=== PATIENT | male | born 1970 | race Caucasian/White ===

== ENCOUNTER 2021-09-24 16:05 | Inpatient (IN) | payer BC ==
[~2021-09-24] VITALS: Ht 190.5 cm; Wt 118.8 kg
--- NOTE | 2021-09-24 16:05 | NUR ---
SUZI 80 FROM URGENT CARE C/O NEAR SYNCOPAL EPISODE, DIAPHORETIC AND BILATERAL HAND NUMBNESS STARTED 1 HOUR AGO. PT ATTCHED TO MONITOR, BLOOD PRESSURE IS ELVATED, MD IS AWARE.
--- NOTE | 2021-09-24 16:18 | NUR ---
IV ESTABLISHED R AC 18G. LABS DRAWN AND COLLECTED AT BEDSIDE.
[2021-09-24] MEDS ORDERED: ONDANSETRON HCL/PF 4 MG/2 ML VIAL ONE (16:31)
[2021-09-24] MEDS ORDERED: LORAZEPAM 0.5 MG TABLET ONE (16:45)
[2021-09-24] MEDS ORDERED: LORAZEPAM 1 MG TABLET PO ONE (17:00)
[2021-09-24] MEDS ORDERED: ONDANSETRON HCL/PF - ER 4 MG/2 ML VIAL IV ONE (17:00)
[2021-09-24] MEDS ORDERED: IV NS 0.9% 250 ML BAG IV ONE ×2 (17:00→19:30)
[2021-09-24 17:33] LABS: BASOPHILS % (AUTO) 0.5 % (0.0-2.0); EOSINOPHILS % (AUTO) 0.5 % (0.0-6.0); HEMATOCRIT 41 % (39-51); HEMOGLOBIN 13.2 g/dL (13.5-17.5); LYMPHOCYTES # (AUTO) 1.3 K/uL (0.8-4.8); LYMPHOCYTES % (AUTO) 13.6 % (20.0-44.0); MEAN CORPUSCULAR HGB CONC 32 g/dl (31.0-36.0); MEAN CORPUSCULAR VOLUME 70 fL (80-96); MONOCYTES % (AUTO) 10.4 % (2.0-12.0); NEUTROPHILS # (AUTO) 6.9 K/uL (1.8-8.9); PLATELET COUNT (AUTO) 254 K/uL (150-450); RED BLOOD CELL COUNT(AUTO) 5.88 MIL/uL (4.5-6.0); WHITE BLOOD COUNT (AUTO) 9.2 K/uL (4.3-11.0)
[2021-09-24 18:15] LABS: ALANINE AMINOTRANSFERASE 182 U/L (12-78); ALBUMIN 3.9 g/dL (3.4-5.0); ALKALINE PHOSPHATASE 62 U/L (46-116); ASPARTATE AMINOTRANSFERASE 104 U/L (15-37); BILIRUBIN,DIRECT 0.2 mg/dL (0.0-0.2); CALCIUM, SERUM 9.5 mg/dL (8.5-10.1); CARBON DIOXIDE 22 mmol/L (21-32); CHLORIDE 99 mmol/L (98-107); CREATININE 1.1 mg/dL (0.6-1.3); GLUCOSE 88 mg/dL (74-106); POTASSIUM 3.6 mmol/L (3.5-5.1); SODIUM SERUM 133 mmol/L (136-145); UREA NITROGEN, BLOOD 11 mg/dL (7-18)
--- NOTE | 2021-09-24 18:48 | NUR ---
COVID TEST COLLECTED AND SENT
--- NOTE | 2021-09-24 19:35 | NUR ---
RECEIVED REPORT FROM DAVID GILLIAM FOR SERG[facility]
--- NOTE | 2021-09-24 19:38 | NUR ---
PT RESTING COMFORTABLY IN BED, DENIES ANY PAIN AT THIS TIME. FAMILY AT BEDSIDE. WILL CONTINUE TO MONITOR.
--- NOTE | 2021-09-24 20:05 | NUR ---
PT STATES HAVING HEARTBURN, WOULD LIKE MEDICATION. MADE AWARE
--- NOTE | 2021-09-24 20:08 | NUR ---
RECEIVED VERBAL ORDER FROM DR IRWIN FOR [facility].
[2021-09-24] MEDS ORDERED: MAG HYDROX/AL HYDROX/SIMETH 30 ML UDC ONE (20:11)
[2021-09-24 20:29] LABS: BILIRUBIN,TOTAL 1.3 mg/dL (0.2-1.0)
[2021-09-24] MEDS ORDERED: IPRATROPIUM NEB FS 0.5 MG/2.5 ML AMPUL.NEB NEB ONE (20:30)
[2021-09-24] MEDS ORDERED: methylPREDNISolone SOD SUCC 125 MG/2ML VIAL IV ONE (20:30)
[2021-09-24] MEDS ORDERED: ALBUTEROL FS 2.5 MG/3 ML VIAL.NEB CONTNEB ONE (20:30)
[2021-09-24] MEDS ORDERED: MAG HYDROX/AL HYDROX/SIMETH 30 ML UDC PO ONE (20:30)
[2021-09-24] MEDS ORDERED: methylPREDNISolone SOD SUCC 125 MG/2ML VIAL ONE (20:47)
[2021-09-24] MEDS ORDERED: ASPIRIN 325 MG TABLET ONE (20:52)
[2021-09-24] MEDS ORDERED: NITROGLYCERIN PACKET 1 GM PACKET ONE (20:52)
[2021-09-24] MEDS ORDERED: IPRATROPIUM NEB FS 0.5 MG/2.5 ML AMPUL.NEB ONE (20:53)
[2021-09-24] MEDS ORDERED: ALBUTEROL FS 2.5 MG/3 ML VIAL.NEB ONE (20:53)
--- NOTE | 2021-09-24 20:57 | NUR ---
RT AT BEDSIDE FOR BREATHING TREATMENT
[2021-09-24] MEDS ORDERED: ASPIRIN 325 MG TABLET PO ONE (21:00)
[2021-09-24] MEDS ORDERED: NITROGLYCERIN PACKET 1 GM PACKET TD ONE (21:00)
--- NOTE | 2021-09-24 21:15 | NUR ---
REPORT GIVEN TO KIKI GILLIAM FOR SERGIO
[2021-09-24 21:30] VITALS: BP 143/94
[2021-09-24] MEDS ORDERED: ENOXAPARIN SODIUM 40 MG/0.4 ML DISP.SYRIN SQ SCH (21:30)
[2021-09-24] MEDS ORDERED: ONDANSETRON HCL/PF 4 MG/2 ML VIAL IVP PRN (21:30)
[2021-09-24] MEDS ORDERED: ACETAMINOPHEN 325 MG TABLET PO PRN (21:30)
[2021-09-24] MEDS ORDERED: MORPHINE SULFATE INJ 2 MG/ML DISP.SYRIN IV PRN (21:30)
--- NOTE | 2021-09-24 21:30 | NUR ---
RN RECEIVING TRANSFER NOTE PATIENT ARRIVED TO 3 VIA GURNEY. PATIENT WAS ABLE TO AMBULATE TO HIS BED W/ STEADY GAIT. PATIENT STABLE. A/OX4. NO S/S OF DISTRESS, BREATHING W/O DIFFICULTY ON ROOM AIR. TELE MONITOR APPLIED AND REVEALED SR 85. RAC #18 INTACT AND PATENT. VS WNL. PATIENT ORIENTED TO THE UNIT, GIVEN CALL CLEANING AND INSTRUCTED ON ITS USE. PATIENT BELONGINGS ACCOUNTED FOR, LOGGED INTO SHEET, AND PLACED IN CHART. SAFETY MEASURES IN PLACE: BED AT LOWEST POSITION, LOCKED, RAILS UP X2, CALL CLEANING WITHIN REACH. WILL CONTINUE TO MONITOR PATIENT.
[2021-09-24] MEDS ORDERED: ATORVASTATIN 10 MG TABLET PO SCH (22:00)
[2021-09-24] MEDS ORDERED: ZOLPIDEM TARTRATE 5 MG TABLET PO PRN (23:00)
[2021-09-25] VITALS: BP 126/58
[2021-09-25 04:00] VITALS: BP 136/75
[2021-09-25 06:17] LABS: BASOPHILS % (AUTO) 0.1 % (0.0-2.0); HEMATOCRIT 40 % (39-51); HEMOGLOBIN 12.9 g/dL (13.5-17.5); LYMPHOCYTES # (AUTO) 0.8 K/uL (0.8-4.8); LYMPHOCYTES % (AUTO) 10.9 % (20.0-44.0); MEAN CORPUSCULAR HGB CONC 33 g/dl (31.0-36.0); MEAN CORPUSCULAR VOLUME 71 fL (80-96); MONOCYTES # (AUTO) 0.1 K/uL (0.1-1.30); NEUTROPHILS # (AUTO) 6.8 K/uL (1.8-8.9); PLATELET COUNT (AUTO) 250 K/uL (150-450); RED BLOOD CELL COUNT(AUTO) 5.61 MIL/uL (4.5-6.0); WHITE BLOOD COUNT (AUTO) 7.7 K/uL (4.3-11.0)
[2021-09-25 07:06] LABS: CALCIUM, SERUM 8.9 mg/dL (8.5-10.1); CREATININE 0.9 mg/dL (0.6-1.3); MAGNESIUM 2.4 mg/dL (1.8-2.4); POTASSIUM 4.4 mmol/L (3.5-5.1)
[2021-09-25] MEDS ORDERED: PANTOPRAZOLE 40 MG TABLET.DR PO SCH (07:30)
--- NOTE | 2021-09-25 07:32 | NUR ---
RN CLOSING NOTE PATIENT ASLEEP IN BED. A/OX4. NO S/S OF DISTRESS, BREATHING W/O DIFFICULTY ON ROOM AIR. TELE MONITOR REVEALS SR 70. RAC#18 SL INTACT AND PATENT. SAFETY MEASURES IN PLACE: BED AT LOWEST POSITION, LOCKED, RAILS UP X2, CALL CLEANING WITHIN REACH. PATIENT IS DUE FOR A CT ANGIO 3D SOMETIME LATER ON TODAY. CONSENTS SIGNED AND IN CHART. REPORT ENDORSED TO AND ACKNOWLEDGED BY DAY SHIFT RNKEITH, FOR SERGIO.
--- NOTE | 2021-09-25 07:33 | NUR ---
ms rn received on bed, awake,alert,oriented x4,not in any form of distress, respirations even and unlabored,no sob noted, came in w/ chest pain, denies at this time,sinus rhythm on monitor, will monitor patient.
[2021-09-25 08:00] VITALS: BP 130/88
[2021-09-25] MEDS ORDERED: METF-441 PO (08:11)
[2021-09-25] MEDS ORDERED: BUDE10.26 INH (08:11)
[2021-09-25] MEDS ORDERED: TELM40TA8 PO (08:11)
[2021-09-25] MEDS ORDERED: PRAV40TA3 PO (08:11)
[2021-09-25] MEDS ORDERED: ALBU18HF2 IH (08:11)
--- NOTE | 2021-09-25 08:30 | NUR ---
ms rn due meds given, patient on npo for ct angio today.
[2021-09-25] MEDS ORDERED: FORMOTEROL FUMARATE INH SCH (09:00)
[2021-09-25] MEDS ORDERED: [UNRECOGNIZED DRUG - OTHER] INH SCH (09:00)
[2021-09-25] MEDS ORDERED: BUDESONIDE INH SCH (09:00)
[2021-09-25] MEDS ORDERED: LOSARTAN POTASSIUM 50 MG TABLET PO SCH ×2 (09:00→09:45)
[2021-09-25] MEDS ORDERED: METFORMIN 850 MG TABLET PO SCH (09:00)
[2021-09-25] MEDS ORDERED: ALBUTEROL SULFATE 8 GM HFA.AER.AD IH PRN (09:00)
[2021-09-25] MEDS ORDERED: ASPIRIN 81 MG TAB.CHEW PO SCH (09:00)
[2021-09-25] MEDS ORDERED: ALBUTEROL FS 2.5 MG/0.5 ML VIAL.NEB NEB PRN (09:30)
--- NOTE | 2021-09-25 10:00 | NUR ---
ms rm was seen by dr. wood w/ heriberto for metoprolol.all needs attended.
[2021-09-25] MEDS ORDERED: METOPROLOL TARTRATE 50 MG TABLET PO SCH (11:00)
[2021-09-25] MEDS ORDERED: ASPI-1169 PO (11:20)
[2021-09-25 12:00] VITALS: BP 132/89
[2021-09-25] MEDS ORDERED: IOHEXOL-350 100 ML VIAL IV ONE (12:18)
[2021-09-25] MEDS ORDERED: CT SWABBABLE VALVE TRANS SET 1 EA INFUS.SET MC ONE (12:18)
[2021-09-25] MEDS ORDERED: METOPROLOL TARTRATE INJ 5 MG/5 ML AMPUL ONE ×2 (12:18→12:46)
[2021-09-25] MEDS ORDERED: IV NS 0.9% 250 ML IV ONE (12:18)
[2021-09-25] MEDS ORDERED: NITROGLYCERIN 0.4 MG/TAB BOTTLE ONE (12:18)
[2021-09-25] MEDS: ALBUTEROL FS 2.5 MG/3 ML VIAL.NEB NEB SCH ×2 (13:30→15:26)
--- NOTE | 2021-09-25 13:45 | NUR ---
Received patient in CT Room for CTCA procedure. Explained procedure to patient. Expressed understanding - all questions answered. Procedure started with no untoward reactions with stable vital signs (CTA Intervention). Procedure completed at 1315 hrs .
--- NOTE | 2021-09-25 14:30 | NUR ---
ms rn came back from ct angio procedure, tolerated well.
--- NOTE | 2021-09-25 15:30 | NUR ---
ms rn waiting for ct result,all needs attended.
[2021-09-25 16:00] VITALS: BP 136/96
--- NOTE | 2021-09-25 16:41 | NUR ---
ms rn received a discharge order from dr mendenhall, patient's cta results forwarded to [facility] to go home.
[2021-09-25] MEDS ORDERED: BUDESONIDE RESPULE INH 0.5 MG/2 ML AMPUL.NEB NEB SCH (17:00)
--- NOTE | 2021-09-25 17:15 | NUR ---
ms culinary internship instructions given and understood, patient went home w/ rx, accompanied by ,all needs attended.
[2021-09-25] MEDS ORDERED: ATORVASTATIN 10 MG TABLET PO SCH ×2 (18:00)
== END 2021-09-25 17:15 | disposition home or self-care (01) | DRG 206 ==
LOC: ER 16:07 → TELE 20:49
PROVIDERS: ADMIT Nurse Practitioner Acute Care; ATTEND Internal Medicine
DX: M94.0 Chondrocostal junction syndrome [Tietze] (principal); D68.59 Other primary thrombophilia; I25.2 Old myocardial infarction; Z86.73 Personal history of transient ischemic attack (TIA), and cerebral infarction without residual deficits; I10 Essential (primary) hypertension; J45.909 Unspecified asthma, uncomplicated; E66.01 Morbid (severe) obesity due to excess calories; E11.9 Type 2 diabetes mellitus without complications; Z82.49 Family history of ischemic heart disease and other diseases of the circulatory system; K21.9 Gastro-esophageal reflux disease without esophagitis
CPT/HCPCS: 36415; 71045-TC; 75574; 80048-TC; 80061-TC; 80076-TC; 83735-TC; 84100-TC; 84484-TC; 85025-TC; 87081-TC; 93307-TC; C9803; G0378; J2405; J2930; J3490; J7030; J7050; Q9967